=== PATIENT | male | born 1960 | race Caucasian/White ===

== ENCOUNTER → 2017-07-29 | Outpatient (CLI) | payer OTHER, BC ==
[~2017-07-29] MED LIST: ASPEC325 PO; ASPI81TA28 PO; CLB200 PO; FENO145T26 PO; HYDR-5688 PO; OXYC-57 PO; OXYSR/20 PO; PRAV20TA PO; RANI150T85 PO; SIMV20TA2 PO; VERA1CAP5 PO
== END | disposition home or self-care (01) ==
LOC: C.CPL 14:26
PROVIDERS: ATTEND Orthopaedic Surgery Sports Medicine
DX: M75.121 Complete rotator cuff tear or rupture of right shoulder, not specified as traumatic (principal)

== ENCOUNTER 2017-08-01 07:14 | Day surgery (SDC) | payer OTHER, BC ==
[2017-07-30 09:49] VITALS: BMI 35.0
--- NOTE | 2017-07-31 21:56 | HISTORY & PHYSICAL EXAMINATION ---
DATE OF ADMISSION: 07/31/2017 CHIEF COMPLAINT: Right shoulder injury. HISTORY OF PRESENT ILLNESS: This is a 57-year-old male patient of Dr. Reinoso'nilda complaining of a fall at work on 05/29/2017. Patient tried conservative treatment including physical therapy, over the counter anti-inflammatories. His symptoms did not improve. MRI did confirm impingement, AC arthritis, rotator cuff tear, biceps tendinitis, and labral tear. After failing conservative treatment, patient wished to proceed with a right shoulder arthroscopic subacromial decompression, possible distal clavicle excision, arthroscopic versus open subscapular repair, arthroscopic versus open biceps tenodesis and possible labral debridement. PAST MEDICAL HISTORY: Hypertension, hypercholesterolemia, obesity. SOCIAL HISTORY: Nonsmoker, occasional drinker. PAST SURGICAL HISTORY: Right knee replacement. FAMILY HISTORY: Noncontributory. REVIEW OF SYSTEMS: Right shoulder pain and decreased strength, otherwise denies any shortness of breath, chest pain, nausea, vomiting or any other joint complaints. MEDICATIONS: Verapamil 100 mg daily, pravastatin 20 mg daily, fenofibrate 145 mg daily. ALLERGIES: No known drug allergies. PHYSICAL EXAMINATION: GENERAL: Well-developed, well-nourished 57-year-old male in no acute distress. He is alert and oriented x3 and pleasant. HEENT: Normocephalic, atraumatic. Extraocular motions are intact. Pupils are equal, reactive to light. HEART: Regular rate and rhythm. No murmurs are appreciated. LUNGS: Clear. ABDOMEN: Soft and nontender. Bowel sounds are present. EXTREMITIES: Right shoulder exam reveals full range of motion with pain. He has 5/5 strength. He has positive belly test maneuvering, positive impingement pain. NEUROLOGIC: Neurovascularly he is intact in his right upper extremity. DIAGNOSES: Right shoulder impingement, distal clavicle arthritis, rotator cuff tear and biceps tendinopathy. He also has a history of hypertension, hypercholesterolemia, obesity. PLAN: Patient was advised of his diagnoses. Indications, risks, benefits, postop course have all been reviewed. Patient wished to proceed with a right shoulder arthroscopic subacromial decompression, possible distal clavicle excision, arthroscopic versus open subscap repair, arthroscopic versus open biceps tenodesis and a possible labral debridement. Necessary consent forms, preoperative testing and clearances will be obtained.
[~2017-08-01] VITALS: Ht 185.4 cm; Wt 122.7 kg
[~2017-08-01 07:14] MED LIST changes: -ASPEC325 PO; -ASPI81TA28 PO; +BUPIVACAINE 0.25% 30 ML VIAL ONE; +CEFAZOLIN 3000MG IV PUSH 22.5 ML IV SCH; -CLB200 PO; +DEXAMETHASONE SOD INJ 4 MG/ML VIAL ONE; +EpINEphrine INJ 1MG/ML AMP 1 MG/ML AMP ONE; -HYDR-5688 PO; +LACTATED RINGER'S 1000ML 1,000 ML IV SCH; -OXYC-57 PO; -OXYSR/20 PO; -RANI150T85 PO; -SIMV20TA2 PO
[2017-08-01 07:55] VITALS: BP 127/80; PULSE 65; TEMP 36.7; O2SAT 95; Ht 185.4 cm; Wt 122.7 kg
[2017-08-01] MEDS ORDERED: MIDAZOLAM HCL 1 MG/ML 2ML VIAL ONE (09:08)
[2017-08-01] MEDS ORDERED: FENTANYL CITRATE INJ 50 MCG/1 ML 2 ML VIAL ONE ×2 (09:08→12:43)
[2017-08-01] MEDS ORDERED: EpHEDrine SULFATE INJ 50 MG/ML AMP IV PRN (09:45)
[2017-08-01] MEDS ORDERED: PROMETHAZINE HCL INJ 6.25 MG in SODIUM CHLORIDE 0.9% 50ML 50 ML IV PRN (09:45)
[2017-08-01] MEDS ORDERED: ONDANSETRON INJ 2 MG/ML 2 ML VIAL IV PRN ×2 (09:45→16:00)
[2017-08-01] MEDS ORDERED: HYDROmorphone INJ 0.5 MG/0.5 ML SYR IV PRN (09:45)
[2017-08-01] MEDS ORDERED: ATROPINE SULFATE 0.1 MG/ML 5ML SYR IV PRN (09:45)
[2017-08-01] MEDS ORDERED: FENTANYL CITRATE INJ 50 MCG/1 ML 2 ML VIAL IV PRN (09:45)
--- NOTE | 2017-08-01 10:34 | History & Physical Bridge Note ---
H&P Re-Evaluation Bridge Note: I have examined the patient, reviewed the History & Physical and in the interval since the performance of the History & Physical I have noted the following changes of clinical significance: No changes noted
[2017-08-01] MEDS ORDERED: EpINEphrine HCL INJ 1 MG/ML 1ML SYRINGE ONE ×2 (11:07→11:40)
[2017-08-01] MEDS ORDERED: ONDANSETRON INJ 2 MG/ML 2 ML VIAL ONE (11:46)
[2017-08-01] MEDS ORDERED: PROPOFOL IV EMULSION 10 MG/ML 20 ML VIAL IV ONE (11:46)
[2017-08-01] MEDS ORDERED: NEOSTIGMINE METHYLSULFATE 5 MG/5 ML SYR ONE (11:46)
[2017-08-01] MEDS ORDERED: GLYCOPYRROLATE INJ 0.2 MG/ML VIAL ONE (11:46)
[2017-08-01] MEDS ORDERED: LIDOCAINE HCL 2% 2 ML VIAL (20MG/ML) ONE (11:46)
[2017-08-01] MEDS ORDERED: DEXAMETHASONE SOD INJ 4 MG/ML VIAL ONE (11:46)
[2017-08-01] MEDS ORDERED: ROCURONIUM BROMIDE 10 MG/ML 5 ML VIAL IV ONE (13:29)
--- NOTE | 2017-08-01 14:22 | [facility] Post Operative Brief Note ---
Immediate Operative Summary Operative Date Aug 01, 2017. Pre-Operative Diagnosis right shoulder chronic rotator cuff tear subscapularis dislocating biceps tendon and labral tear acj arthritis and impingement Post-Operative Diagnosis same Procedure(s) Performed Right Shoulder Arthroscopic Subacromial Decompression, Distal Clavical Excision , Labral and Rotator Cuff Debridement and Biceps Tenotomy, Open Supraspinatis and Subscapular Repair, Open Bicep Tenodesis Surgeon Dr. Santos Reinoso Medical Front Desk Specialist Surgeon(s) Christ King PA-C Estimated Blood Loss 15ml Findings Consistent with Post-Op Diagnosis Specimens no specimens per surgeon Drains None Anesthesia Type General Regional Complication(s) none Disposition Disposition: Recovery Room / PACU
[2017-08-01] MEDS ORDERED: SODIUM CHLORIDE 0.9% 1000ML 1,000 ML IV SCH (14:28)
[2017-08-01] MEDS ORDERED: OXYC-57 PO (14:30)
[2017-08-01] MEDS ORDERED: OXYCODONE/ACETAMINOPHEN 5-325 TAB PO PRN ×2 (14:30)
--- NOTE | 2017-08-01 14:33 | Discharge Instructions ---
Discharge Instructions Date of Service Aug 01, 2017. Admission Reason for Admission: Right Shoulder Impingement Syndrome, Primary Osteo Discharge Discharge Diagnosis / Problem: right shoulder rotator cuff repair, decompression, distal clavicle excision Discharge Goals Goal(s): Improve function Activity Recommendations Activity Limitations: as noted below . Instructions / Follow-Up Instructions / Follow-Up Please see printed home exercises and instruction sheets in chart. NO formal PT until follow up in office. Follow up with Dr. Reinoso 10-12 days post op as scheduled, call [phone] to confirm appt. Current Hospital Diet Patient's current hospital diet: Discharge Diet Recommended Diet: Regular Diet Procedures Procedures Performed: Right Shoulder Arthroscopic Subacromial Decompression, Distal Clavical Excision , Labral and Rotator Cuff Debridement and Biceps Tenotomy, Open Supraspinatis and Subscapular Repair, Open Bicep Tenodesis Pending Studies Studies pending at discharge: no Medical Emergencies . Who to Call and When: Medical Emergencies: If at any time you feel your situation is an emergency, please call 911 immediately. . Non-Emergent Contact Non-Emergency issues call your: Primary Care Provider . "Provider Documentation" section prepared by Christ King. . [place] Drug Monitoring Program Search Results: patient reviewed within database, no issues identified
--- NOTE | 2017-08-01 15:11 | Anesthesiology Progress Note ---
Anesthesia Post Op Note Date & Time Aug 01, 2017 at 15:11 Vital Signs Pain Intensity: 1 Vital Signs Past 12 Hours Date Time Temp Pulse Resp B/P (MAP) Pulse Ox O2 Delivery O2 Flow Rate FiO2 08/01/17 15:10 36.2 71 24 142/60 94 Nasal Cannula 4 08/01/17 15:00 71 24 149/61 95 Nasal Cannula 4 08/01/17 14:50 67 24 149/73 95 Mask 12 08/01/17 14:40 64 24 145/77 93 Mask 15 08/01/17 14:32 36 59 20 157/69 92 Oxymask 15 08/01/17 07:55 36.7 65 18 127/80 (96) 95 Room Air Notes Mental Status: alert / awake / arousable, participated in evaluation Pt Amnestic to Procedure: Yes Nausea / Vomiting: adequately controlled Pain: adequately controlled Airway Patency, RR, SpO2: stable & adequate BP & HR: stable & adequate Hydration State: stable & adequate Anesthetic Complications: no major complications apparent Block working well in pacu
[2017-08-01 15:15] VITALS: BP 147/69; PULSE 71; TEMP 37.4; O2SAT 94
[2017-08-01 15:45] VITALS: BP 135/41; PULSE 73; O2SAT 98
[2017-08-01] MEDS ORDERED: NURSING VERBAL MED ORDER ONE (16:00)
[2017-08-01] MEDS ORDERED: METOCLOPRAMIDE HCL INJ 5 MG/ML 2 ML VIAL IV PRN (16:00)
[2017-08-01 16:15] VITALS: PULSE 70; TEMP 36.5; O2SAT 93
--- NOTE | 2017-08-01 17:54 | OPERATIVE REPORT ---
DATE OF OPERATION: 08/01/2017 INDICATION FOR PROCEDURE: Patient is a 57-year-old male with a work related injury to his right shoulder. He has had chronic pain, failed conservative management with physical therapy. This happened months ago. He has ongoing pain. He had MR arthrogram obtained. This demonstrated an upper subscapularis tendon tear, dislocating or subluxed biceps tendon, and probable labral tear. He has some AC joint arthritis which may be causing impingement. PREOPERATIVE DIAGNOSES: Chronic right shoulder pain status post work related injury with rotator cuff tear, subscapularis dislocating biceps tendon, labral tear, possible impingement syndrome due to acromioclavicular joint hypertrophy, acromioclavicular joint arthritis. POSTOPERATIVE DIAGNOSES: Right shoulder upper subscapularis tendon tear, upper one-half to two-thirds, with dislocating biceps tendon, biceps tendinopathy, anterior superior labral tear, a partial tear, high grade supraspinatus tendon tear with tendinopathy, with subacromial impingement, acromioclavicular joint arthritis causing impingement, with moderate arthritis to the acromioclavicular joint, and subacromial bursitis. PROCEDURES: Right shoulder arthroscopic subacromial decompression, distal clavicle excision, debridement including tenotomy of biceps, suture placement in biceps tendon followed by open rotator cuff repair of the subscapularis and supraspinatus, and biceps tenodesis. SURGEON: Dr. Reinoso. BARREL RIFLER BUTTON: Christ King PA-C. ANESTHESIA: Regional block and general. OPERATIVE PROCEDURE: Patient was taken to the operating room, anesthetized under regional block and general anesthetic. [facility] in 70 degree beach chair position. Patient was an obese male, large belly, thick neck, heavy chest, a fairly large arm. His right shoulder was sterilely prepped and draped with ChloraPrep. His arthroscopy was started with a posterior arthroscopy portal in the soft spot, anterior portal in the rotator interval, lateral portal in the subacromial space. In the glenohumeral joint, the patient had normal articular surface of the glenoid and humeral head. In the labrum, he had a little bit of fraying in the anterior superior labrum in the area of the rotator interval. Biceps tendon had some fraying and undersurface tendinopathy from dislocating over the anterior biceps groove. Biceps could be easily dislocated over biceps groove anteriorly underneath a subscapularis tendon tear which was completely torn off the lesser tuberosity for at least one-half to two-thirds of the tendon. There was a scar tissue sheath connected to the supraspinatus that was still intact. Supraspinatus had undersurface tearing with a high grade partial tear of the supraspinatus with some undersurface fraying, tendinopathy, and some exposed bone at the greater tuberosity area. The infraspinatus tendon was intact. There was some synovitis in the joint. In the subacromial space, there was some chronic bursitis. The bursal surface of the supraspinatus was intact. There was impingement from a prominent inferior AC joint spurs and type 2 acromion process. Attention was first taken to the glenohumeral joint. The undersurface of the biceps was debrided. The undersurface of the rotator cuff was debrided, and the labrum was debrided. A #1 PDS was placed into the biceps tendon with a spinal needle, and then tenotomy of the biceps was performed with the radiofrequency ablator. Attention was taken to subacromial space at which time we did a bursectomy, ablated the undersurface of the acromion and undersurface of the AC joint. I released the CA ligament off the anterior acromion process. I used the 5.5 bur to plane down the acromion to the type 1 flat shape and resect 1 cm distal clavicle using 30 to 70 degree arthroscope to visualize resection. Then the arthroscopic instrument was removed, and we reprepped the shoulder with Hibiclens. Then an anterior longitudinal incision was made in the deltopectoral approach. The skin was incised sharply. Subcutaneous flaps were elevated. The cephalic vein was dissected out and retracted laterally with the deltoid. The pectoralis was retracted medially. There was scar tissue from the subdeltoid and pectoralis fascia down along the conjoined tendon and overlying the subscapularis consistent with the traumatic injury. I had to dissect through the scarred clavipectoral fascia, identified the conjoined tendon, lateral margin of the conjoined tendon, and carefully from the underlying subscapularis tendon tissue and scar tissue. There was a set of crossing veins we had to tie off with silk ties and divide for appropriate exposure. Dissection was taken up to the CA ligament, this was left intact. The self-retaining retractor was placed, and then all the thickened bursa tissue was removed overlying the rotator cuff. One could see that the biceps tendon was clearly dislocating underlying layer of scar tissue that was still intact lateral to the subscapularis tendon tear. I opened up the rotator interval and extended down into the bicipital groove identifying the dislocating biceps tendon and the partial undersurface tear of the supraspinatus and the tear of the upper subscapularis. The footprint of the subscapularis portion of the tear was debrided using rongeur and a curette. The upper bicipital groove was debrided removing soft tissue using a rongeur and a curette down to bony surface for tenodesis. There was some bone spurring of the medial groove of the biceps tendon groove, and this bone spur was removed and prepared for repair of the tissue overlying that area. The footprint of supraspinatus was curetted to bone for repair of the supraspinatus portion of the tear. Attention was first taken to the biceps repair. Biceps tendon was placed back in the bicipital groove. Tension was placed on the biceps tendon with a traction suture. A [employer] 2.8 mm Q-Fix anchor was placed into the mid biceps groove adjacent to the subscapularis tendon tear. I placed 2 [place] sutures through the biceps using each of the sutures from the double-loaded anchor. These were tied down with surgeon's knot, and the excess biceps tendon proximally was resected. Then the supraspinatus was repaired placing another 2.8 mm Q-Fix anchor at the articular margin, and sutures were passed in horizontal mattress fashion and tied down with surgeon's knots. The subscapularis was repaired with double row fixation. There was a fixation medially with another 2.8 mm Q-Fix anchor. The sutures were passed in horizontal mattress fashion, tied down, and then the tails of suture placed into a 4.5 mm footprint anchor in the upper bicipital groove area. Tails of the sutures were left intact, and those sutures were placed into the soft tissue anterior and posterior with some of the transverse ligament and rotator cuff tissue and anteriorly into the subscap tendon tissue, and those individual sutures were tied down again closing that interval. The rotator interval and some of the lower lateral subscapularis were repaired with the [id number] #2 Ultrabraid sutures until we had a complete repair of the rotator interval, subscapularis tendon, and supraspinatus tendon, with the biceps tendon being stable in the groove with active range of motion of the elbow and passive range of motion of shoulder. The repair was stable through range of motion of the shoulder to 120 degrees overhead, 90 degrees of abduction and external rotation, and 60 degrees tension on the repair, and the repair was secure. The wound was copiously irrigated with saline. We also copiously irrigated the joint and wound prior to the repair itself. The deltopectoral interval was allowed to fall back together normally. The subcutaneous tissue was closed with interrupted 2-0 Vicryl sutures, skin closed with 3-0 Monocryl and Steri-Strips. The port sites were closed with nylon sutures. Sterile dressings were applied and a shoulder immobilizer. DAVID Mchugh was my nursing assistants teacher. He functioned as nursing assistants teacher through the entire procedure. He assisted in arm positioning, soft tissue retraction, instrument management, suture management, performed the subcutaneous and skin closure, and will participate in the postoperative care of the patient. I attest to the content of the Intraoperative Record and any orders documented therein. Any exception s are noted below.
== END 2017-08-01 16:30 | disposition home or self-care (01) ==
LOC: C.ACU 07:14
PROVIDERS: ATTEND Orthopaedic Surgery Sports Medicine
DX: S46.011A Strain of muscle(s) and tendon(s) of the rotator cuff of right shoulder, initial encounter (principal); M75.41 Impingement syndrome of right shoulder; M75.21 Bicipital tendinitis, right shoulder; I10 Essential (primary) hypertension; E78.00 Pure hypercholesterolemia, unspecified; E66.9 Obesity, unspecified; Z96.651 Presence of right artificial knee joint; M19.011 Primary osteoarthritis, right shoulder; X58.XXXA Exposure to other specified factors, initial encounter

== ENCOUNTER 2019-04-07 07:51 | Inpatient (IN) ==
--- NOTE | 2019-03-25 11:17 | Anesthesiology Consultation ---
Date of Service March 25, 2019 Assessment & Plan (1) Encounter for pre-operative examination: - Check BSG AM DOS Chart Review Chart Review: Acceptable Risk for Surgery and Patient NOT seen in Pre Admission Testing History Surgery Operation Date: 04/07/19 10:50 Proposed Procedures p Left Total Knee Arthroplasty - Miguel Hsu DO Height/Weight Height: 6 ft 1 in Weight: 115.666 kg Allergies Allergy/AdvReac Type Severity Reaction Status Date / Time AQUA BANDAGE Allergy Severe LARGE Uncoded 03/23/19 11:37 BLACK SPOTS ON LEG Medications Home Medications Medication Instructions Recorded Confirmed Last Taken fenofibrate nanocrystallized 145 mg PO HS 12/04/18 03/23/19 Unknown simvastatin 20 mg PO HS 12/04/18 03/23/19 Unknown verapamil 100 mg PO HS 12/04/18 03/23/19 Unknown sitagliptin-metformin [Janumet] 1 tab PO BID 03/23/19 03/23/19 Unknown Past Medical History Medical History (Updated 03/25/19 @ 11:17 by Juliana Mcgraw) Diabetes Hyperlipidemia Hypertension Obesity Past Family History Family History Other No significant family history Past Surgical History Surgical History H/O arthroscopy of left knee H/O arthroscopy of right knee H/O shoulder surgery RT SHOULDER AND BICEP TENDON REPAIR 08/01/17: MAC #4, ETT #7.5, Oral, Grade 1 View History of colonoscopy History of tooth extraction History of total knee replacement RT Social History Smoking Status: Never smoker Do You Dip or Chew Tobacco: No Hx Alcohol Use: Yes Alcohol type: beer alcohol intake frequency: a few times a month Hx Substance Use: No substance use type: does not use Testing Laboratory Results 03/12/19 WBC 7.11 H/H 15.4/47.9 PLATELETS 255 SODIUM 139 POTASSIUM 4.2 CHLORIDE 107 CO2 26.1 BUN 20.5 CREATININE 0.90 GLUCOSE 106 HGBA1C 6.7% 12/09/18 PT 10.1 PTT 25.6 INR 1.0 T&S A+Ab- Electrocardiogram Date: 12/09/18 NSR at 68bpm. LAD. RBBB. Chest X-Ray Date: 12/09/18 No acute cardiopulmonary findings. Mild elevation of the right hemidiaphragm.
--- NOTE | 2019-03-29 08:01 | History & Physical Report ---
Date of Service March 29, 2019 date of surgery: 04-07-19 Assessment & Plan (1) Left knee DJD: Further care discussed with patient and at this point in time has failed conservative measures and would like to proceed with a Left total knee replacement. Plan on discharge will be home with Home Health physical therapy. DVT prophalaxis with TEDs, SCDs and will also place on aspirin 81 mg p.o. b.i.d. for a month postop. Patient will have follow up appointment in our office two weeks post op for staple removal and re-evaluation. Patient otherwise has no other questions or concerns. History of Present Illness Chief Complaint: left knee pain Primary Care Provider: Trini Scott Mr Ospina is a 58 year old male who complains of left knee pain, presents for pre-op evaluation prior to a left total knee replacement at [facility]. He presents with pain and decreased range of motion on the left side. He states that the symptoms have been chronic non-traumatic. Currently the patient states that the symptoms are moderate and has gradually been worsening. The pain is described as aching, throbbing and sharp. The patient is experiencing pain along the medial joint line and posterior knee. He rates his current pain as 3/10 and worst is 7/10. The symptoms are aggravated by daily activities, first steps while awake, walking and repetitive activities. Candido states that the symptoms are relieved by no specific activity. In addition to left knee pain the patient is also experiencing decreased mobility, difficulty bending and pain while walking. He has been treated with a corticosteroid injection in the past. Patient has had previous therapy. Patient has had previous arthroscopic surgery, on 06-08-14 Dr. Hsu performed Right TKA and Left knee arthroscopy with partial medial & lateral meniscectomy with chondroplasty. Allergies Allergy/AdvReac Type Severity Reaction Status Date / Time AQUA BANDAGE Allergy Severe LARGE Uncoded 03/23/19 11:37 BLACK SPOTS ON LEG Home Medications Home Medications Medication Instructions Recorded Confirmed Type fenofibrate nanocrystallized 145 mg PO HS 12/04/18 03/23/19 History simvastatin 20 mg PO HS 12/04/18 03/23/19 History verapamil 100 mg PO HS 12/04/18 03/23/19 History sitagliptin-metformin [Janumet] 1 tab PO BID 12/03/19 12/03/19 History Past Med/Surg History Medical History Diabetes Hyperlipidemia Hypertension Obesity Surgical History H/O arthroscopy of left knee H/O arthroscopy of right knee H/O shoulder surgery RT SHOULDER AND BICEP TENDON REPAIR 08/01/17: MAC #4, ETT #7.5, Oral, Grade 1 View History of colonoscopy History of tooth extraction History of total knee replacement RT Family History Other No significant family history Social History Preferred Language: Kenyan Communication Ability: Effective Benefits Coordinator Required: No Beliefs That Will Affect Care: None Current Living Situation: Spouse Feels Safe at Home: Yes Safety Concerns: Feels Safe At This Time Smoking Status: Never smoker Do You Dip or Chew Tobacco: No ; Second Hand Exposure: No ; Tobacco Cessation Education Requested by Patient: No Hx Alcohol Use: Yes Alcohol type: beer Hx Substance Use: No Review of Systems Review of Systems: All systems reviewed & are unremarkable except as noted in HPI & below Constitutional: no fever, no chills and no sweats Respiratory: no cough and no dyspnea Cardiovascular: no chest pain, no dyspnea and no orthopnea Gastrointestinal: no abdominal pain, no nausea and no vomiting Musculoskeletal: as per Subjective / HPI Physical Exam Physical Exam: Ht: 6ft 1in Wt: 115.7kg BP: Pulse: Constitutional: WD/WN, vitals as above no acute distress Respiratory: normal respiratory effort, lungs clear to auscultation no respiratory distress, no labored breathing and does not use accessory muscles Cardiovascular: RRR, no murmur, no edema Gastrointestinal (Abdomen): normal bowel sounds, soft, nontender, no hepatosplenomegaly Musculoskeletal: Knee: + effusion (+1 effusion), + surgical incision (well healed portals), + limited ROM of knee (ROM 0/3/110), + knee ROM with crepitation, + joint line tenderness (medial joint line) and + Fei's sign positive; no deformity, no skin erythema, no ecchymosis, no valgus laxity, no varus laxity, anterior drawer test negative, Emily's sign negative and pivot shift test negative Left Knee: + effusion (+1 effusion), + surgical incision (well healed portals), + limited ROM of knee (ROM 0/3/110), + knee ROM with crepitation, + joint line tenderness (medial joint line) and + Fei's sign positive; no deformity, no skin erythema, no ecchymosis, no valgus laxity, no varus laxity, anterior drawer test negative, Emily's sign negative and pivot shift test negative Results & Data Diagnostic Findings Left Knee X-ray from 10/19/18 confirms advanced degenerative changes to the left knee, greatest medial compartments and patellofemoral joint, showing joint space narrowing, osteophyte formation and subchondral sclerosis. no acute bony pathology noted.
[~2019-04-07 07:51] MED LIST changes: +ACETAMINOPHEN 500 MG TAB PO SCH; -BUPIVACAINE 0.25% 30 ML VIAL ONE; +CEFAZOLIN 3000MG 72.5 ML IV SCH; -CEFAZOLIN 3000MG IV PUSH 22.5 ML IV SCH; +CeleBREX 200 MG CAP PO SCH; -DEXAMETHASONE SOD INJ 4 MG/ML VIAL ONE; -EpINEphrine INJ 1MG/ML AMP 1 MG/ML AMP ONE; +FAMOTIDINE 20 MG TAB PO SCH; -FENO145T26 PO; +GABAPENTIN 600 MG DOSE PO SCH; -LACTATED RINGER'S 1000ML 1,000 ML IV SCH; +LR 500ML BOLUS, THEN 15ML/HR IV SCH; -PRAV20TA PO; +ROPIVACAINE 0.5% HCL/PF 150 MG, BUPIVACAINE 0.5% MPF 30 ML, EPINEPHrine 30MG/30ML (OR U... INSTIL SCH; +TRANEXAMIC ACID 1,000 MG **IV Intra-op IV SCH; +TRANEXAMIC ACID 1,000 MG **IV Pre-op IV SCH; -VERA1CAP5 PO; +dexAMETHasone 4 MG TAB PO SCH
[2019-04-07] MEDS ORDERED: BUPIVACAINE 0.5 % 5 MG/1 ML PF 10ML VIAL ONE (08:46)
[2019-04-07] MEDS ORDERED: BUPIVACAINE/EPINEPHRINE 0.25% 1:200,000 30 ML VIAL ONE (08:47)
[2019-04-07] MEDS ORDERED: DEXAMETHASONE SOD INJ 4 MG/ML VIAL ONE (08:48)
[2019-04-07] MEDS ORDERED: fentaNYL citrate 100 MCG/2 ML VIAL ONE (08:59)
[2019-04-07] MEDS ORDERED: MIDAZOLAM HCL 1 MG/ML 2ML VIAL ONE (08:59)
--- NOTE | 2019-04-07 09:48 | History & Physical Bridge Note ---
Date of Service April 07, 2019 History & Physical Bridge Note I have examined the patient, reviewed the History & Physical and in the interval since the performance of the History & Physical I have noted the following changes of clinical significance: no changes noted
[2019-04-07] MEDS ORDERED: PROPOFOL IV EMULSION 10 MG/ML 20 ML VIAL IV ONE ×2 (09:50→12:04)
[2019-04-07] MEDS ORDERED: BACITRACIN INJ 50,000 UNIT VIAL ONE (10:10)
[2019-04-07] MEDS ORDERED: ORTHO JOINT ANESTHETIC ONE (10:10)
[2019-04-07] MEDS ORDERED: ATROPINE SULFATE 0.1 MG/ML 10ML SYR IV PRN (10:32)
[2019-04-07] MEDS ORDERED: ePHEDrine sulfate 50 MG/ML AMP IV PRN (10:32)
[2019-04-07] MEDS ORDERED: PROMETHAZINE HCL 6.25 MG in SODIUM CHLORIDE 0.9% 50 ML IV PRN (10:32)
[2019-04-07] MEDS ORDERED: fentaNYL citrate 100 MCG/2 ML VIAL IV PRN (10:32)
[2019-04-07] MEDS ORDERED: ONDANSETRON INJ 2 MG/ML 2 ML VIAL IV PRN ×2 (10:32→14:03)
--- NOTE | 2019-04-07 12:03 | Operative Report ---
Post Operative Report Pre & Post Diagnosis Operation Date: 04/07/19 10:20 Pre-Op Diagnosis: Unilateral Primary Osteoarthritis, Left Knee Post-Op Diagnosis: Unilateral Primary Osteoarthritis, Left Knee I identified the patient and participated in the time-out.: Yes Procedure Operation Date: 04/07/19 10:20 Actual Procedures p Left Total Knee Arthroplasty(Left) utilizing [employer] [facility] patient matched total knee arthroplasty size 7 femur 8 tibia 13 poly-35 oval patella- Miguel Hsu DO Surgeon Miguel Hsu DO Devulcanizer Loader Marino HERNANDEZ Estimated Blood Loss 5 Findings Consistent with Post-Op Diagnosis Patient resents severe end-stage DJD left knee no responsetoconservativemanagement patient is marginal osteophyte subchondral sclerosis eburnated bone varus alignment moderate to large effusion Specimens Bone cartilage Drains Medium bore Hemovac Anesthesia Type MAC Regional Complications none Indications Patient presents with severe end-stage tricompartmental degenerative joint di sease no response to conservative management patient failed times a corticosteroid injection Visco supplementation relative rest activity modification and presents for left total knee arthroplasty above intraoperative findings are noted at this time Description of Procedure Patient was properly identifiedAfter proper prepping and draping of the left lower extremity anterior midline incision was made over the region of the extensor extensor mechanism after meticulous hemostasis was obtained and maintained in subcutaneous tissues a medial parapatellar incision was made The patella was subluxed lateralward the medial lateral gutter were cleaned from any hypertrophic synovitis and scar tissue of the distal femoral block was placed an d the distal femoral osteotomy cut was made subsequently the chamfers anterior and posterior osteotomy cuts were made utilizing the 4-in-1 block the tibia was subsequently subluxed anteriorward medial and ateral meniscal remnants were excised in their entirety remnants of the anterior and posterior cruciate ligaments were excised in their entirety excellent exposure of the proximal tibia was obtained the tibial osteotomy guide was placed on the proximal tibial osteotomy cut was made once again the knee was irrigated with copious amounts of sterile saline solution the patella was subsequently everted lateralward thickened scar tissue around the patella was removed the patella was subsequently cut utilizing a freehand technique and was drilled prepared for final preparation and placement of patella socially flexion-extension gaps were checked and the equal and symmetric trials were placed to the appropriate femoral and tibial trials with poly-spacer being placed for equal flexion and ex tension gaps and full range of motion including extension to 0 and flexion to 140 the trial components after having been taken to recovery range of motion was subsequently removed meticulous hemostasis was obtained and maintained subsequently a knee block injection of joint cocktail including ropivacaine 0.5% 150 mg. Bupivacaine 0.5% epinephrine 1-200,030 mL's toradol 30 mg dexamethasone 4 mg ketamine 10 mg clonidine 100 micrograms normal saline solution 30 mg was infiltrated into the soft tissues of the posterior knee medial lateral gutters and periosteal synovium special attention was paid to protect neurovascular structures at all times subsequently trial components having been removed the knee was irrigated with sterile saline solution. debris was removed the proximal tibia was subsequently prepared and was made ready for the placement of the tibial component tibial component was also cemented and tamped into position the femoral component was subsequently placed and cemented in the position the patellar component was subsequently cemented in position because hemostasis once again obtained and maintained wound having been thoroughly irrigated with debridement and debridement lavage was performed as well as a medial parapatellar incision closed with #1 Vicryl in interrupted fashion subcutaneous was closed with #2 Vicryl skin was closed with skin clips. PA-C was necessary for prepping and drapping as well as wound closure of deep fascia Sub cutaneous tissue and skin and was necessary for the case. A sterile compressive dressing was placed patient was taken to recovery in stable condition of report dictated by Shadi I attest to the content of the Intraoperative Record and any orders documented therein. Any exceptions are noted below. I attest to the content of the Intraoperative Record and any orders documented therein. Any exceptions are noted below.
[2019-04-07] MEDS ORDERED: ONDANSETRON INJ 2 MG/ML 2 ML VIAL ONE (12:05)
[2019-04-07] MEDS ORDERED: LIDOCAINE HCL 2% 2 ML VIAL/AMP(20MG/ML) INFIL ONE (12:05)
--- NOTE | 2019-04-07 13:11 | XRay Report ---
XR knee LT 1 or 2V routine HISTORY: 58 years-old Male Surgical Post Op left knee total joint arthroplasty. History of degenerat luis joint disease COMPARISON: Knee radiographs 04/02/2010 TECHNIQUE: 2 views of the left knee FINDINGS: Left knee total joint arthroplasty and patella resurfacing. Anterior midline skin abhay are noted a long with expected postsurgical soft tissue swelling and deep tissue air with surgical drainage starr ter. No acute fracture or retained foreign body. IMPRESSION: Satisfactory alignment of the left knee total joint arthroplasty. ACT 112: Negative or not required by law. The above report was generated using voice recognition software. It may contain grammatical, syntax o r spelling errors. Electronically signed by: Jayden May M.D. 04/07/2019 1:10 PM
--- NOTE | 2019-04-07 13:15 | Anesthesiology Progress Note ---
Date of Service April 07, 2019 Anesthesia Post Procedure Vital Signs Vital Signs: Temp Pulse Pulse Resp BP Pulse Ox 04/07/19 13:05 66 18 136/88 92 04/07/19 12:55 66 18 124/62 92 04/07/19 12:45 36.4 C L 72 18 139/67 94 04/07/19 08:18 36.5 C 67 20 157/86 H 98 Pain Intensity Left Knee: Pain Intensity: 2 Transfer of Care Handoff Completed per policy Notes Mental Status: alert / awake / arousable Patient Amnestic to Procedure: Yes Nausea / Vomiting: adequately controlled Pain: adequately controlled Airway Patency, RR, SpO2: stable & adequate BP & HR: stable & adequate Hydration State: stable & adequate Neuraxial Anesthesia: was administered and sensory block is resolving Anesthetic Complications: no major complications apparent
[2019-04-07] MEDS ORDERED: NALOXONE HCL 0.4 MG/1 ML VIAL/CARP IV PRN (14:03)
[2019-04-07] MEDS ORDERED: bisacodyL 10 MG SUPP PR PRN (14:03)
[2019-04-07] MEDS ORDERED: MAGNESIUM HYDROXIDE SUSP 30 ML UDC PO PRN (14:03)
[2019-04-07] MEDS ORDERED: HYDROmorphone INJ 0.5 MG/0.5 ML SYR IV PRN (14:03)
[2019-04-07] MEDS ORDERED: DiphenhydrAMINE HCL 50 MG/ML VIAL IV PRN (14:03)
[2019-04-07] MEDS: SODIUM CHLORIDE 0.9% 1000ML 1,000 ML IV SCH (14:46)
[2019-04-07] MEDS ORDERED: DEXTROSE 50% 50 ML SYRINGE IV PRN (15:00)
[2019-04-07] MEDS ORDERED: GLUCAGON FOR INJ 1 MG VIAL IM PRN (15:00)
[2019-04-07] MEDS ORDERED: GLUCOSE 40% GEL 15 GM TUBE PO PRN (15:00)
[2019-04-07] MEDS ORDERED: CARBOHYDRATES FOR HYPOGLYCEMIA PO PRN (15:00)
[2019-04-07] MEDS ORDERED: GLUCOSE 10 TABS/TUBE PO PRN (15:00)
[2019-04-07] MEDS ORDERED: PHARMACY GLYCEMIC MGMT CONSULT PRN (15:24)
[2019-04-07] MEDS ORDERED: INSULIN GLARGINE SOLOSTAR 100 UNITS/ML 3 ML PEN SC ONE ×3 (15:30→21:00)
[2019-04-07] MEDS: ACETAMINOPHEN 500 MG TAB PO SCH (17:06)
[2019-04-07] MEDS: CEFAZOLIN 2000MG 2,000 MG/15 ML SYR IV SCH (17:40)
[2019-04-07] MEDS: INSULIN ASPART 100 UNITS/ML 3 ML PEN SC SCH ×2 (17:42→21:16)
[2019-04-07] MEDS: OXYCODONE HCL IR 5 MG TAB (IMMEDIATE RELEASE) PO PRN (17:56)
[2019-04-07] MEDS: DOCUSATE SODIUM 100 MG CAP PO SCH (20:18)
[2019-04-07] MEDS: ASPIRIN 81 MG ECTAB PO SCH (20:19)
[2019-04-07] MEDS ORDERED: FENOFIBRATE NANOCRYSTALLIZED 145 MG TABLET PO SCH (21:00)
[2019-04-07] MEDS ORDERED: NON-FORMULARY MEDICATION (Sitagliptin-Metformin [Janumet] 1 TAB) PO SCH (21:00)
[2019-04-07] MEDS ORDERED: SIMVASTATIN 20 MG TAB PO SCH (21:00)
[2019-04-07] MEDS ORDERED: VERAPAMIL 100 MG PO SCH (21:00)
[2019-04-07] MEDS ORDERED: SENNA 8.6 MG TAB PO SCH (21:00)
[2019-04-08] MEDS: OXYCODONE HCL IR 5 MG TAB (IMMEDIATE RELEASE) PO PRN ×2 (00:14→11:34)
[2019-04-08] MEDS: INSULIN ASPART 100 UNITS/ML 3 ML PEN SC SCH ×4 (00:55→13:22)
[2019-04-08] MEDS: SODIUM CHLORIDE 0.9% 1000ML 1,000 ML IV SCH (00:59)
[2019-04-08] MEDS: CEFAZOLIN 2000MG 2,000 MG/15 ML SYR IV SCH (04:10)
[2019-04-08 05:58] LABS: Hematocrit (blood only) 40.7 % (42-52); Hemoglobin 13.5 g/dL (14.0-18.0); Mean Corpuscular Hgb Conc 33.2 g/dL (32-36); Mean Corpuscular Volume 87.3 fL (80-100); Mean Platelet Volume 10.5 fL (7.4-10.4); Platelet Count 223 K/uL (130-400); RDW Coefficient of Variation 13.4 % (11.5-14.5); Red Blood Count 4.66 M/uL (4.7-6.1); White Blood Count 13.46 K/uL (4.8-10.8)
[2019-04-08] MEDS: ACETAMINOPHEN 500 MG TAB PO SCH ×2 (06:01→13:21)
[2019-04-08 06:23] LABS: BUN Creatinine Ratio 20.6 (10-20); Calcium 8.4 mg/dl (8.5-10.1); Creatinine Clr Calc Pharmacy 126.6 ml/min; Est GFR (African American) 111.8; Est GFR (Non-African American) 96.5; Potassium 3.9 mmol/L (3.5-5.1)
[2019-04-08 06:24] LABS: Estimated Average Glucose 137 mg/dl; Hemoglobin A1C 6.4 % (4.5-5.6)
[2019-04-08] MEDS ORDERED: MULTIVITAMIN TAB PO SCH (09:00)
[2019-04-08] MEDS: DOCUSATE SODIUM 100 MG CAP PO SCH (09:08)
[2019-04-08] MEDS: ASPIRIN 81 MG ECTAB PO SCH (09:08)
--- NOTE | 2019-04-08 10:04 | Pharmacy Report ---
Glycemic Control Consultation - Date of Service April 08, 2019 - Scope Scope: Glycemic Pharmacist consulted by Jade Rodríguez PA-C on 04/07/19 for glycemic control and to write orders per [facility] inpatient glycemic control protocol - Objective Weight: 116.165 kg Accuchecks BSG (last 24hrs): 04/07/19 04/07/19 04/07/19 12:48 15:08 17:02 Glucose POC Glucose 126 H 215 H 183 H 04/07/19 04/08/19 04/08/19 20:30 00:01 04:07 Glucose POC Glucose 128 H 122 H 112 H 04/08/19 04/08/19 05:21 08:15 Glucose 122 H POC Glucose 134 H Laboratory Data (last 24hrs): 04/08/19 05:21 Potassium 3.9 Carbon Dioxide 24 Anion Gap 6.0 Creatinine 0.87 Est Cr Clr Drug Dosing 126.6 HbA1c: Hemoglobin A1c 6.4 % (4.5-5.6) H 04/08/19 05:21 - Recent Pertinent Medications Outpatient Anti-diabetic Regimen: * Janumet mg PO BID * A1c = 6.4 % on 04/08/19 Yesterday patient received: * Basal insulin: Lantus 25 units at 1700 then 15 units at HS * Correctional Insulin: Novolog Correction per scale ACHS Goal Range: Low 110 mg/dL - High 140 mg/dL Correction Factor: 15 mg/dL/unit * Prandial insulin: Per carb ratio of 1 unit per 5 grams CHO consumed * Oral Agents: ON HOLD Risk Factors for Insulin Resistance: * Steroids: Dexamethasone 8 mg PO and 4 mg IV in OR yesterday * Infection: Ancef post op x 2 doses yesterday. * IVF: NS @ 100 ml/hr -discontinued this AM. * Recent Surgery: L TKA - today is POD #1 * Diet: T2DM - Assessment & Plan Assessment & Plan: ASSESSMENT: * 58 y/o M with Type 2 Diabetes currently admitted for L TKA which was performed yesterday. Patient was maintained at home with Janumet anti-diabetic med. * Oral agents are not recommended for inpatient use d/t drug interactions, changing PO intake, and difficulty titrating for acute hyper/hypoglycemia. ADA recommends re-initiating outpatient oral agents 1-2 days prior to discharge if/when appropriate if they were held on admission. * Will hold oral agents for admission and utilize SQ basal bolus insulin regimen which is the recommended regimen for inpatient glycemic control. Will initiate weight based insulin dosing for insulin delia patient and titrate based on BSG trends. * Patient received total 54 units of insulin yesterday of which 40 units was basal and rest bolus. * Patient required high dose of basal Lantus yesterday d/t receiving steroid in oral and IV forms in the OR and this helped with steroid induced hyperglycemia. Fasting BSG at goal today AM. * Novolog CF/CR loosened with lunch today since effects of steroid should be wearing off at this time. Lantus was not resumed this AM since effects of the 40 units of Lantus from yesterday should be working still. PLAN FOR INPATIENT GLYCEMIC CONTROL: * Holding outpatient oral diabetes medications * Basal insulin: none * Bolus insulin: loosened * NovoLog per scale ACHS or Q6hrs while NPO * Goal Range: Low 110 mg/dL - High 140 mg/dL * Correction Factor: 20 mg/dL/unit * Nutritional / Prandial insulin per carb ratio of 1 unit per 7 grams CHO consumed * Please note that the plan above was derived based on current level of insulin resistance and hospital stress. These recommendations are appropriate for inpatient admission only. Plan of care upon discharge will need to be reassessed to avoid potential outpatient hypo/hyperglycemia. Thank you.
--- NOTE | 2019-04-08 12:53 | Orthopedic Progress Note ---
Date of Service April 08, 2019 Assessment & Plan (1) Left knee DJD: POD 1 s/p Left TKA PT/OT. WBAT. Progressing well. DVT prophylaxis - ASA,SCD's,OSCAR's Pain management as written DC planning - services with drain removal tomorrow. Plan for dc today. Subjective POD 1 Pt sitting up in bed. No overt complaints. Mild pain in the operative knee. States therapy went very well. Ambulated the hallways and went up/down steps. Denies SOB,CP,LH. Hoping to go home today. Physical Exam Physical Exam: Dressings C/D/I. Calves soft,NT. NV intact. Toes mobile. HV drainage 100ml from early AM shift. Recheck was 175ml's late morning. Results & Data Vital Signs (Past 12 Hours) Vital Signs Temp Pulse Resp BP BP Pulse Ox 04/08/19 10:50 36.7 C 74 19 127/71 93 04/08/19 07:00 36.4 C L 56 L 18 131/75 96 04/08/19 04:00 36.5 C 60 16 133/77 94 Laboratory Results Laboratory Results WBC 13.46 K/uL (4.8-10.8) H 04/08/19 05:21 RBC 4.66 M/uL (4.7-6.1) L 04/08/19 05:21 Hgb 13.5 g/dL (14.0-18.0) L 04/08/19 05:21 Hct 40.7 % (42-52) L 04/08/19 05:21 MCV 87.3 fL (80-100) 04/08/19 05:21 MCH 29.0 pg (25-34) 04/08/19 05:21 MCHC 33.2 g/dL (32-36) 04/08/19 05:21 RDW Std Deviation 43.0 fL (36.4-46.3) 04/08/19 05:21 RDW Coeff of Naveen 13.4 % (11.5-14.5) 04/08/19 05:21 Plt Count 223 K/uL (130-400) 04/08/19 05:21 MPV 10.5 fL (7.4-10.4) H 04/08/19 05:21 Sodium 140 mmol/L (136-145) 04/08/19 05:21 Potassium 3.9 mmol/L (3.5-5.1) 04/08/19 05:21 Chloride 110 mmol/L (98-107) H 04/08/19 05:21 Carbon Dioxide 24 mmol/L (21-32) 04/08/19 05:21 Anion Gap 6.0 (3-11) 04/08/19 05:21 BUN 18 mg/dl (7-18) 04/08/19 05:21 Creatinine 0.87 mg/dl (0.6-1.4) 04/08/19 05:21 Est Cr Clr Drug Dosing 126.6 ml/min 04/08/19 05:21 Est GFR ( Amer) 111.8 04/08/19 05:21 Est GFR (Non-Af Amer) 96.5 04/08/19 05:21 BUN/Creatinine Ratio 20.6 (10-20) H 04/08/19 05:21 Glucose 122 mg/dl (70-99) H 04/08/19 05:21 POC Glucose 134 (70-99) H 04/08/19 08:15 Estimat Average Glucose 137 mg/dl 04/08/19 05:21 Hemoglobin A1c 6.4 % (4.5-5.6) H 04/08/19 05:21 Calcium 8.4 mg/dl (8.5-10.1) L 04/08/19 05:21 Hepatitis C Ab Screen Neg (Neg) 04/08/19 05:21 Blood Type A Positive 04/07/19 08:25 Antibody Screen NEGATIVE 04/07/19 08:25
--- NOTE | 2019-04-19 14:14 | Discharge Summary ---
Date of Service April 19, 2019 Admission HPI Per Admitting Provider Mr sOpina is a 58 year old male who complains of left knee pain, presents for pre-op evaluation prior to a left total knee replacement at [facility]. He presents with pain and decreased range of motion on the left side. He states that the symptoms have been chronic non-traumatic. Currently the patient states that the symptoms are moderate and has gradually been worsening. The pain is described as aching, throbbing and sharp. The patient is experiencing pain along the medial joint line and posterior knee. He rates his current pain as 3/10 and worst is 7/10. The symptoms are aggravated by daily activities, first steps while awake, walking and repetitive activities. Candido states that the symptoms are relieved by no specific activity. In addition to left knee pain the patient is also experiencing decreased mobility, difficulty bending and pain while walking. He has been treated with a corticosteroid injection in the past. Patient has had previous therapy. Patient has had previous arthroscopic surgery, on 06-08-14 Dr. Hsu performed Right TKA and Left knee arthroscopy with partial medial & lateral meniscectomy with chondroplasty. Principal Diagnosis Left knee osteoarthritis Discharge Exam Physical Exam: Dressings C/D/I. Calves soft,NT. NV intact. Toes mobile. HV drainage 100ml from early AM shift. Recheck was 175ml's late morning. Discharge Data Allergies Allergy/AdvReac Type Severity Reaction Status Date / Time AQUA BANDAGE Allergy Severe LARGE Uncoded 04/07/19 08:17 BLACK SPOTS ON LEG Consultations 04/07/19 14:03 Consult Case Management - Discharge Planning Routine Procedures Performed Operation Date: 04/07/19 10:20 Actual Procedures p Left Total Knee Arthroplasty(Left) - Miguel Hsu DO Ordered Studies 04/07/19 05:00 US - OR guided needle placemen Routine Hospital Course (1) Osteoarthritis of left knee: Patient was admitted on the above-noted date and had the above-noted surgery performed which he tolerated well.On his first postoperative day, he was sitting up in bed. No overt complaints. He had mild pain in the operative knee and stated that his physical therapy went very well. He ambulated in the hallways and went up and down steps. Denied shortness of breath, chest pain, lightheadedness. He was hoping to be discharged home. Dressings were clean, dry, intact. Calves were soft and nontender. Neurovascular was intact. Toes were mobile. Hemovac drainage was 100 mL from the early shift. Vital signs were stable and he was afebrile. Hemoglobin was 13.5. Nursing staff rechecked his Hemovac drainage later that morning and he had drained another 175 mL. Patient was planning on having home health services. He was progressing well with his physical therapy and remaining stable and was felt he be discharged home. Plans were to have home health services do a dressing change and remove the drain the following day. Total Time Total Time Spent Total Time Spent (In Minutes): 10 Discharge Plan Discharge Items Patient Disposition: Home - Home Health Services Reason For Visit: Unilateral Primary Osteoarthritis, Left Knee Discharge Diagnosis: Left Knee Osteoarthritis Activity: Per Instructions section Weightbearing: Left weightbearing Weightbearing Comment: as tolerated with walker or crutches Non-emergency contact: Surgeon Call non-emergency contact if: your pain is not controlled, your temperature is above 101.5, your wound has increased redness and your wound has increased drainage Follow-up/Referrals: Trini Scott M.D. [Primary Care Provider] - Diet: Carb Consistent or DM2 Addtl Attending Provider Instructions: ACTIVITY RECOMMENDATIONS: SELF CARE INSTRUCTIONS AFTER TOTAL KNEE REPLACEMENT A. You may need to continue a physical therapy program after discharge from the hospital. There are several options available to you. Your doctor will assist you in selecting the best one for you. 1. An out-patient facility 2 to 3 times a week for therapy or home therapy. 2. Continue working on all exercises taught to you in the hospital. Your goals should be to increase bending of your knee to 90 degrees and beyond and to fully straighten your knee. B. You may progress at your own pace from walking with a walker or crutches to a cane; then to no assistive devices. C. Make walking a part of your daily routine. Be up as much as comfortable with rest periods throughout the day. Rest with leg elevation is very important. Use the ice wrap frequently for the first 3-4 weeks. D. There are no restrictions on activities. You may ride in a car, shop, participate in supervisor acoustical tile carpenters and all social activities. E. Wear the long elastic stockings (OSCAR hose) 20 hours a day for 2 weeks after surgery. They can be removed several times a day for laundering and for a bath. F. You may shower, no tub baths until cleared by your doctor. SPECIAL CARE INSTRUCTIONS: VERY IMPORTANT TO READ AND REVIEW A. There are a few signs you need to watch for after you are home. Call [facility] if you notice any of the followin. Increased severe knee pain. Some pain is expected especially when you exercise. 2. Increased swelling in your leg or knee; pain or swelling of the calf muscle in either lower leg. 3. Any fluid drainage from the incision. 4. Shortness of breath or chest pain. B. Please call [facility] at if you have any concerns or questions about your operation or recovery. The doctor or his nurse will return your call promptly. C. You must take antibiotics before dental work, bladder, bowel or other surgery. Your doctor will provide you with a permanent care to carry describing this precaution. IMPORTANT: * REMEMBER TO TAKE ASPIRIN, 81 MG, TWICE DAILY FOR 4 WEEKS UNLESS OTHERWISE DIRECTED. THIS IS YOUR BLOOD THINNER. * HIGH RISK PATIENTS MAY BE PRESCRIBED A STRONGER BLOOD THINNER. THIS WILL BE PROVIDED AT DISCHARGE. * CALL IF INCREASED PAIN, REDNESS, DRAINAGE OR FEVER GREATER THAT 101. * WEAR OSCAR HOSE 20 HOURS PER DAY FOR 2 WEEKS. * JESSE wound vac - This is a large suction dressing covering your incision. This will help pull any excess drainage from the wound and allow your incision to heal properly. You may shower with this if you can keep the unit outside of the shower. If any bleeding or leakage is noted please call your doctor's office. This will remain on your incision for 7 days and then should be removed. This can be done yourself or by the home nursing staff if applicable. The entire unit is disposable once removed. Once removed, keep incision clean a nd dry. If redness or drainage is noted, please call your surgeon. . FOLLOW UP VISIT: If appointment is not already scheduled: Please call [facility] to make a follow-up appointment for 2 weeks after your surgery at . Pending Studies at Discharge: Yes Studies:: Pathology report pending Stand-Alone Forms: My [employer], Smoking Cessation Medications and DC Order Prescriptions: New sennosides [Senokot] 8.6 mg Tablet 17.2 mg PO HS PRN (Reason: constipation) Qty: 30 RF: 0 aspirin [Ecotrin Low Strength] 81 mg Tablet,Delayed Release (Dr/Ec) 81 mg PO BID 30 Days Qty: 60 RF: 0 acetaminophen 500 mg Tablet 1,000 mg PO Q8 14 Days Qty: 84 RF: 0 oxycodone 5 mg Tablet 5 mg PO Q4H MDD 6 tabs PRN (Reason: pain) Qty: 30 RF: 0 Continued simvastatin 20 mg Tablet 20 mg PO HS RF: 0 verapamil 100 mg Capsule, [address] 100 mg PO HS RF: 0 fenofibrate nanocrystallized 145 mg Tablet 145 mg PO HS RF: 0 Janumet 50-1,000 mg Tablet 1 tab PO BID RF: 0 Discharge Orders: Discharge Order (Routine); Ordered 04/08/19 Ordered By: Marino Rodríguez Admission Data Admit Date/Time: 04/07/19 12:49 Attending Provider: Miguel Hsu Admit Provider: Miguel Hsu Primary Care Provider: Trini Scott Other Interventions: Discharge Summary Assessment (RN) Last Done: 04/08/19 13:48 DC Date/Time DO NOT enter until pt leaves facility: 04/08/19 14:43
== END 2019-04-08 14:43 | disposition home health service (06) | DRG 470 ==
LOC: ASU 07:51 → 3E 12:49